=== PATIENT | female | born 2000 | race Caucasian/White ===

== ENCOUNTER 2021-05-19 14:43 | Emergency (ER) | payer MEDICARE, OTHER ==
[~2021-05-19] VITALS: Ht 160 cm; Wt 58.5 kg
[2021-05-19] MEDS ORDERED: ONDANSETRON HCL 4 MG ORAL DISINTEGRATING TAB ONE (15:05)
[2021-05-19] MEDS ORDERED: SODIUM CHLORIDE 0.9% 1000ML 1,000 ML IV STA ×2 (15:51→15:53)
[2021-05-19] MEDS ORDERED: KETOROLAC TROMETHAMINE 30 MG/ML VIAL IV STA (15:51)
[2021-05-19] MEDS ORDERED: DIPHENHYDRAMINE HCL INJ 50 MG/ML VIAL IV ONE (16:00)
[2021-05-19] MEDS ORDERED: ONDANSETRON HCL 4 MG ORAL DISINTEGRATING TAB PO ONE (16:00)
[2021-05-19 16:37] LABS: BASOPHILS % 0.3 % (0.0-1.0); HEMATOCRIT 43.5 % (34.2-44.1); HEMOGLOBIN 14.3 g/dL (12.0-16.0); LYMPHOCYTES # (AUTO) 0.9 (1.0-3.2); LYMPHOCYTES % 6.4 % (18.0-39.1); MEAN CORPUSCULAR HEMOGLOBIN 28.4 pg (28-32); MEAN CORPUSCULAR HGB CONC 32.9 g/dL (31-35); MEAN CORPUSCULAR VOLUME 86.3 fL (81-99); MONOCYTES # (AUTO) 0.4 (0.2-0.8); MONOCYTES % 2.4 % (4.4-11.3); NEUTROPHILS # (AUTO) 12.9 (2.1-6.9); NEUTROPHILS % 90.3 % (38.7-80.0); PLATELET COUNT 192 x10e3/uL (140-360); RED BLOOD COUNT 5.04 x10e6/uL (3.6-5.1); RED CELL DISTRIBUTION WIDTH 14.4 % (11.7-14.4)
[2021-05-19 17:01] LABS: LYMPHOCYTES % (MANUAL) 11 % (19-48); MONOCYTES % (MANUAL) 5 % (3.4-9.0); NEUTROPHILS % (MANUAL) 84 % (40-74)
[2021-05-19 17:02] LABS: PLATELET ESTIMATE ADEQUATE; PLATELET MORPHOLOGY COMMENT NORMAL; RBC MORPHOLOGY COMMENT NORMAL
[2021-05-19 17:20] LABS: ALBUMIN 4.1 g/dL (3.5-5.0); ALBUMIN/GLOBULIN RATIO 1.2 (0.8-2.0); ANION GAP 14.9 mmol/L (8-16); CALCIUM 9.4 mg/dL (8.4-10.2); CREATININE, SERUM 0.6 mg/dL (0.57-1.11); POTASSIUM 3.9 mmol/L (3.5-5.1)
[2021-05-19 17:50] LABS: HCG,QUANTITATIVE 140650.99 mIU/mL (0-10)
[2021-05-19 18:01] LABS: CLARITY,URINE HAZY (CLEAR); COLOR,URINE YELLOW (YELLOW); KETONES,URINE 2+ (NEGATIVE); LEUKOCYTE ESTERASE ,URINE NEGATIVE (NEGATIVE); NITRITE,URINE NEGATIVE (NEGATIVE); PROTEIN,URINE DIPSTICK 1+ (NEGATIVE); URINE UROBILINOGEN 0.2 mg/dL (0.2 - 1)
[2021-05-19 18:03] LABS: AMORPHOUS SEDIMENT,URINE FEW (FEW); BACTERIA,URINE MODERATE /HPF; EPITHELIAL CELLS,URINE MODERATE /LPF; MUCUS,URINE FEW (RARE)
[2021-05-19 19:09] VITALS: BP 120/79
== END 2021-05-19 19:12 | disposition home or self-care (01) ==
LOC: ER 15:54
DX: O23.41 Unspecified infection of urinary tract in pregnancy, first trimester (principal); O21.9 Vomiting of pregnancy, unspecified; Z3A.11 11 weeks gestation of pregnancy
CPT/HCPCS: 36415; 80053; 81001; 83735; 84702; 85025; 87086; 99283; J1200; J7030; Q0162

== ENCOUNTER 2024-05-27 11:09 | Emergency (ER) | payer SELFPAY ==
[~2024-05-27] VITALS: Ht 160 cm; Wt 62.6 kg
[2024-05-27 13:51] VITALS: PULSE 84; RESP 16; TEMP 99.2; O2SAT 100
[2024-05-27] MEDS ORDERED: BENZONATATE100 MG PO (14:21)
[2024-05-27] MEDS ORDERED: AZITHROMYCIN250 MG PO (14:21)
== END 2024-05-27 14:31 | disposition home or self-care (01) ==
LOC: ER 11:13
DX: R50.9 Fever, unspecified (principal); J18.9 Pneumonia, unspecified organism; R05.9 Cough, unspecified
CPT/HCPCS: 71046; 81025; 87400; 99283; U0002

== ENCOUNTER 2024-11-20 10:37 | Emergency (ER) | payer SELFPAY ==
[~2024-11-20] VITALS: Ht 160 cm; Wt 62.6 kg
[~2024-11-20 10:37] MED LIST: AZITHROMYCIN250 MG PO; BENZONATATE100 MG PO
[2024-11-20 10:42] VITALS: PULSE 91; RESP 18; TEMP 98.8
[2024-11-20] MEDS: SODIUM CHLORIDE 0.9% 1000ML 1,000 ML IV STA (11:41)
[2024-11-20] MEDS: DIPHENHYDRAMINE HCL INJ 50 MG/ML VIAL IV ONE (11:42)
[2024-11-20] MEDS: METOCLOPRAMIDE HCL 10 MG/2ML VIAL IV ONE (11:43)
[2024-11-20] MEDS: KETOROLAC TROMETHAMINE 30 MG/ML VIAL IV STA (11:45)
[2024-11-20] MEDS ORDERED: FIORICET 50-301 EACH PO (12:10)
[2024-11-20 12:22] VITALS: BP 118/70; PULSE 85; RESP 18; O2SAT 100
== END 2024-11-20 12:24 | disposition home or self-care (01) ==
LOC: ER 10:43
DX: G43.909 Migraine, unspecified, not intractable, without status migrainosus (principal); G44.209 Tension-type headache, unspecified, not intractable; W20.8XXA Other cause of strike by thrown, projected or falling object, initial encounter; Y92.89 Other specified places as the place of occurrence of the external cause
CPT/HCPCS: 36415; 84702; 99283; J1200; J1885; J2765; J7030